=== PATIENT | female | born 1995 | race Hispanic/Latino ===

== ENCOUNTER 2024-06-18 10:48 | Emergency (ER) | payer SELFPAY ==
[2024-06-18 10:53] VITALS: PULSE 80; RESP 20; TEMP 98.2
[2024-06-18] MEDS: SODIUM CHLORIDE 0.9% 1000ML 1,000 ML IV ONE (11:16)
[2024-06-18 14:03] VITALS: BP 107/63; PULSE 59; RESP 18; TEMP 97.4; O2SAT 100
== END 2024-06-18 14:00 | disposition home or self-care (01) ==
LOC: FSED 10:52
DX: O20.9 Hemorrhage in early pregnancy, unspecified (principal); R10.30 Lower abdominal pain, unspecified
CPT/HCPCS: 76801; 80053; 81003; 81025; 85025; 99283; J7030